=== PATIENT | female | born 1950 | race Caucasian/White ===

== ENCOUNTER 2021-01-04 15:45 | Inpatient (IN) ==
[2021-01-04] MEDS ORDERED: SODIUM CHLORIDE 0.9% 1,000 ML IV STA (16:03)
[2021-01-04 16:05] VITALS: BP 131/29
[2021-01-04 17:04] LABS: INR 1.8; Partial Thromboplastin Time 56.2 SECS (23.9-33.8)
[2021-01-04 17:07] LABS: ABG Base Excess -26.3 MMOL/L (-2.5-2.5); ABG HCO3 5.2 MMOL/L (20-26); ABG Oxygen Saturation 99.2 % (95-100); ABG PCO2 26.9 MM HG (35-48); ABG PO2 413.1 MM HG (80-95)
[2021-01-04 17:09] LABS: ABG PH 6.903 (7.35-7.45)
[2021-01-04 17:18] LABS: Basophils # 0.1 10*3/uL (0.0-0.2); Basophils % 0.2 % (0.0-0.8); Hematocrit 36.6 VOL% (35.7-47.0); Hemoglobin 9.8 GM/DL (12.0-16.0); Immature Granulocytes % 7.5 %; Immature Granulocytes Absolute 1.59 #; Lymphocytes # 4.2 10*3/uL (1.4-4.0); Lymphocytes % 19.5 % (21.3-54.2); Mean Corpuscular HGB Conc 26.8 GM/DL (32-36); Mean Corpuscular Volume 97.9 FL (87-102); Mean Platelet Volume 9.6 FL (9.6-12.0); Monocytes % 3.3 % (1.7-12.7); NRBC # 0.33 10*3/uL; Neutrophils % 69.5 % (38.7-73.9); Platelet Count 438 T/CUMM (130-400); Red Blood Count 3.74 MC/CUMM (3.8-5.5); Red Cell Distribution Width 15.4 % (9.3-17.3); White Blood Count 21.3 T/CUMM (4-12)
[2021-01-04] MEDS ORDERED: NOREPINEPHRINE 8 MG in SODIUM CHLORIDE 0.9% 242 ML IV PRN (17:27)
[2021-01-04 17:29] LABS: Albumin 1.4 G/DL (3.4-5.0); Bilirubin,Total 0.8 MG/DL (0.20-1.00); Calcium 9.2 MG/DL (8.5-10.1); Osmolality,Calculated 289.3 MOS/KG (273-304); Potassium 5.4 MMOL/L (3.5-5.1); Total Protein 7.2 G/DL (6.4-8.2)
[2021-01-04 17:39] LABS: Lymphocytes 23 % (20-55); Segmented Neutrophils 73 % (50-85); Total Cells Counted 100
[2021-01-04 17:41] LABS: Nucleated Red Blood Cells 4 (0-5); Polychromasia Slight
[2021-01-04] MEDS ORDERED: SODIUM BICARBONATE 50 MEQ/50 ML VIAL IV ONE (17:41)
[2021-01-04 17:42] LABS: Atypical Lymphocytes 2+
[2021-01-04] MEDS ORDERED: ONDANSETRON 4 MG/2 ML VIAL IV PRN (17:46)
[2021-01-04] MEDS ORDERED: MIDAZOLAM 100 MG in SODIUM CHLORIDE 0.9% 80 ML IV PRN (17:46)
[2021-01-04] MEDS ORDERED: ALBUTEROL 2.5 MG/3 ML NEB RESP TX PRN (17:46)
[2021-01-04] MEDS ORDERED: ENOXAPARIN 100 MG/ML SYRINGE SUBCUT STA (17:51)
[2021-01-04] MEDS ORDERED: PANTOPRAZOLE 40 MG VIAL IV SCH (18:00)
[2021-01-04] MEDS ORDERED: HEPARIN/NACL 0.9% 2 UNITS/ML 1,000 UNIT/500 ML BAG IV ONE (18:04)
[2021-01-04] MEDS ORDERED: LIDOCAINE 1% 20 ML VIAL ONE (18:04)
[2021-01-04] MEDS ORDERED: MIDAZOLAM 2 MG/2 ML VIAL ONE (18:09)
[2021-01-04] MEDS ORDERED: fentaNYL 100 MCG/2 ML VIAL ONE (18:09)
[2021-01-04] MEDS ORDERED: EPINEPHrine 1 MG/ML VIAL ONE (18:17)
[2021-01-04] MEDS ORDERED: PHENYLEPHRINE 50 MG/5 ML VIAL ONE (18:48)
[2021-01-04] MEDS ORDERED: cefTRIAXone 2,000 MG in SODIUM CHLORIDE 0.9% 100 ML IV SCH (19:30)
[2021-01-04] MEDS ORDERED: LEVOFLOXACIN INJ 750 MG/150 ML PREMIX IV SCH (19:30)
[2021-01-04] MEDS ORDERED: PHENYLEPHRINE DRIP 40 MG/250 ML PREMIX IV PRN (20:29)
[2021-01-04] MEDS: SODIUM BICARBONATE 50 MEQ/50 ML VIAL IV PRN ×5 (20:40→22:00)
[2021-01-04 20:52] LABS: ABG Base Excess -18.2 MMOL/L (-2.5-2.5); ABG HCO3 7.9 MMOL/L (20-26); ABG Oxygen Saturation 99.3 % (95-100); ABG PO2 461.7 MM HG (80-95); ABG TCO2 8.5 MMOL/L (23-27)
[2021-01-04 20:53] LABS: ABG PCO2 20.2 MM HG (35-48)
[2021-01-04] MEDS ORDERED: PHENYLEPHRINE INJ 160 MG in SODIUM CHLORIDE 0.9% 234 ML IV PRN (20:56)
[2021-01-04] MEDS ORDERED: HYDROCORTISONE 100 MG VIAL IV SCH (21:00)
[2021-01-04] MEDS ORDERED: DEXTROSE 50% 25 GM/50 ML VIAL IV ONE (21:00)
[2021-01-04] MEDS: LACTATED RINGERS 1,000 ML IV SCH (21:34)
[2021-01-04 21:35] LABS: Albumin 0.9 G/DL (3.4-5.0); Bilirubin,Direct 0.54 MG/DL (0.0-0.20); Bilirubin,Indirect 0.6 MG/DL (0.0-1.0); Bilirubin,Total 1.1 MG/DL (0.20-1.00); Total Protein 5.2 G/DL (6.4-8.2)
[2021-01-04 21:36] LABS: Calcium 6.8 MG/DL (8.5-10.1); Osmolality,Calculated 298.6 MOS/KG (273-304); Total Protein 5.2 G/DL (6.4-8.2)
[2021-01-04 21:46] LABS: Bacteria,Urine Many /HPF (Few); Bilirubin,Urine Negative (Negative); Blood, Urine Moderate mg/dL (Negative); Glucose,Urine (UA) Negative (Negative); Ketones,Urine Negative (Negative); Mucus,Urine Many /LPF (Occasional); Nitrite,Urine Negative (Negative); Protein,Urine 100 MG/DL; RBC,Urine 29 /HPF (0-4); Squamous Epithelial Cell,Urine Few /HPF (0-10); Urine Appearance CLOUDY (Clear); Urine Color Amber (Yellow); Urine Specific Gravity 1.016 (1.001-1.035); Urine Urobilinogen < 2.0 EU/DL (0.2-1.0)
[2021-01-04] MEDS ORDERED: CALCIUM CHLORIDE 1,000 MG/10 ML SYRINGE IV ONE (22:06)
[2021-01-04] MEDS: NOREPINEPHRINE 16 MG in SODIUM CHLORIDE 0.9% 234 ML IV PRN (23:19)
[2021-01-04 23:32] LABS: ABG Base Excess -12.4 MMOL/L (-2.5-2.5); ABG HCO3 14.6 MMOL/L (20-26); ABG Oxygen Saturation 99.8 % (95-100); ABG PCO2 27.8 MM HG (35-48); ABG PH 7.287 (7.35-7.45); ABG TCO2 12.6 MMOL/L (23-27)
[2021-01-05] MEDS ORDERED: DEXTROSE 50% 25 GM/50 ML VIAL IV PRN (00:14)
[2021-01-05] MEDS ORDERED: LACTATED RINGERS 1,000 ML IV ONE (00:19)
[2021-01-05] MEDS: NOREPINEPHRINE 16 MG in SODIUM CHLORIDE 0.9% 234 ML IV PRN (01:24)
[2021-01-05] MEDS: LACTATED RINGERS 1,000 ML IV SCH (05:04)
[2021-01-05] MEDS ORDERED: CALCIUM CHLORIDE 1,000 MG/10 ML SYRINGE IV ONE (05:21)
[2021-01-05] MEDS ORDERED: LACTATED RINGERS 2,000 ML IV ONE (06:04)
== END 2021-01-05 01:50 | disposition expired | DRG 286 ==
LOC: EDUNIT# → EDBD → N.ED 15:45 → N.EDINP 17:03 → N.ICU 18:13
PROVIDERS: ADMIT Internal Medicine; ATTEND Internal Medicine